=== PATIENT | male | born 1970 | race Caucasian/White ===

== ENCOUNTER 2017-04-20 12:57 | Emergency (ER) | payer SELFPAY ==
[~2017-04-20] VITALS: Ht 182.9 cm; Wt 97.3 kg
[2017-04-20 13:00] VITALS: TEMP 36.7; Ht 182.9 cm; Wt 97.3 kg
[2017-04-20] MEDS ORDERED: CYCLOBENZAPRINE HCL 5 MG TAB PO STA (13:28)
[2017-04-20] MEDS ORDERED: OXYCODONE HCL IR 5 MG TAB (IMMEDIATE RELEASE) PO STA (13:28)
[2017-04-20] MEDS ORDERED: CYCL10TA6 PO (13:30)
[2017-04-20] MEDS ORDERED: OXYC1TAB3 PO (13:30)
--- NOTE | 2017-04-20 13:32 | EMERGENCY ROOM VISIT NOTE ---
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 The pain was gradual in onset, is now constant and worse with movement. The patient notes the pain as constant and a 6/10. The patient has taken nothing relief of the pain. The patient denies any loss of control of their bowel or bladder functions. There has been no leg numbness or weakness, and no change in sensation. No nausea or vomiting or abdominal pain. No chest pain or shortness of breath. The patient has had prior back injuries. No dysuria or increased urinary frequency. The patient notes that the pain is at the inferior lumbar paraspinous musculature region. REVIEW OF SYSTEMS: A review of systems was performed with positives and pertinent negatives listed in the history of present illness. All other systems were reviewed and are negative. ALLERGIES: No known allergies MEDICATIONS: As noted below PMH: Previous herniated disc SOCIAL HISTORY: Patient lives locally. PHYSICAL EXAM: VITALS: Vitals are noted on the nurse's note and reviewed by myself. Vital signs stable. GENERAL: 46-year-old male, in no acute distress, nondiaphoretic, well-developed well-nourished. SKIN: The skin was without rashes, erythema, edema, or bruising. NECK: Supple without nuchal rigidity. No cervical spine tenderness. No paraspinous muscle tenderness. HEART: Regular rate and rhythm without murmurs gallops or rubs. LUNGS: Clear to auscultation bilaterally without wheezes, rales or rhonchi. ABDOMEN: Soft, nontender, without masses or organomegaly. Martin sign negative. MUSCULOSKELETAL: No muscle atrophy, erythema, or edema noted of the back. There is no tenderness over the lumbar spinous processes. There is tenderness over the paraspinous muscles of the left lumbar region . There is no tenderness over the thoracic spine paraspinous muscles. There are muscle spasms present in the left lumbar region. NEURO: Patient was alert and oriented to person place and time. Normal sensation to light and sharp touch. Deep tendon reflexes 2+ in the lower extremities. He is neurovascularly intact in lower extremities Strength 5/5 and equal in the bilateral lower extremities. EMERGENCY DEPARTMENT COURSE: 46-year-old male who presents to the emergency department with complaints of lower paraspinous musculature pain. This is on the left side. This is consistent with a lumbar strain. There is active spasm in this region. He was provided 10 mg of Flexeril, and 5 mg of OxyIR some relief of his pain. He has no neurologic deficits on exam. No evidence of osteomyelitis, abdominal etiologies or emergent etiologies at this time. I do not believe that imaging would be beneficial at this time. Patient is otherwise healthy. I do suspect that a course of pain medication and muscle relaxers will help expedite the healing process. He'll be discharged home with Flexeril and OxyIR. He was educated upon management today's findings. He is a follow-up with his family doctor regarding today's visit. He is to follow up regarding his high blood pressure. He was educated upon worrisome symptoms which to return, had questions prior to discharge, and was discharged home in good condition. In the evaluation and treatment of this patient following differential diagnoses were entertained: Lumbar strain, herniated disc, osteomyelitis, fracture, AAA, abdominal etiologies, among others. In the treatment of this patient controlled medication was utilized and therefore the [facility], Prescription Drug Monitoring Program website was utilized to look up this patient. No concerns were identified that would prohibit or alter my treatment decision. Problem List Medical Problems: (1) Chronic lumbar pain Status: Chronic Surgical Problems: (1) No significant past surgical history Status: Chronic Current/Historical Medications Scheduled Cyclobenzaprine Hcl (Flexeril), 10 MG PO TID Scheduled PRN Oxycodone Ir (Roxicodone Ir), 1-2 TAB PO Q4H PRN for Pain Allergies Coded Allergies: No Known Allergies (Unverified , 04/20/17) Vital Signs Date Time Temp Pulse Resp B/P (MAP) Pulse Ox O2 Delivery O2 Flow Rate FiO2 04/20/17 13:45 61 18 150/85 98 04/20/17 13:00 36.7 76 16 150/94 96 Room Air Medications Administered Medications (Trade) Dose Ordered Sig/Erin Route Start Time Stop Time Status Last Admin Dose Admin Oxycodone HCl (Roxicodone Immediate Rel Tab) 5 mg NOW STAT PO 04/20/17 13:28 04/20/17 13:29 DC 6/6/17 13:39 5 MG Cyclobenzaprine HCl (Flexeril Tab) 10 mg NOW STAT PO 04/20/17 13:28 04/20/17 13:29 DC 04/20/17 13:40 10 MG Departure Information Impression Primary Impression: Strain of lumbar region Dispostion Home / Self-Care Condition GOOD Prescriptions Cyclobenzaprine Hcl (FLEXERIL) 10 Mg Tab 10 MG PO TID, #15 TAB Prov: Brandin John PA-C 04/20/17 Oxycodone Ir (Roxicodone Ir) 5 Mg Tab 1-2 TAB PO Q4H Y for Pain, #20 TAB For Initial Treatment Prov: Brandin John PA-C 04/20/17 Referrals Jono Raza M.D. (PCP) Patient Instructions [facility] Additional Instructions You have been treated in the Emergency Department for Back Pain. You have received pain medicine in the emergency department which impairs your ability to operate a vehicle. It is illegal for you to drive after receiving these medicines. You have been prescribed Oxy IR to be used for pain control. This is a narcotic medication. You cannot drive or consume alcohol while on this medicine. This medicine should only be used for pain that cannot be controlled with over-the- counter pain medicines. You have been prescribed Flexeril (cyclobenzaprine) 1 tabs orally, three times per day. Do NOT exceed 30 mg per day. Take your first dose at bedtime as it can make you drowsy. Always take all medications as prescribed. For pain control, you can use the following [id number] medicines (if >12 yo): - Regular strength (325mg/tab) Tylenol (acetaminophen) 2 tabs every 4-6 hours as needed. Do not exceed 12 tablets in a 24 hour period. Avoid taking more than 3 grams (3000 mg) of Tylenol per day. This includes any other sources of acetaminophen you may take on a regular basis. - Regular strength (200 mg/tab) Advil (ibuprofen) 1-2 tabs every 4-6 hours as needed. Do not exceed a dose of 3200 mg per day. If this is an acute injury, ice can be applied to the area of pain for the first 3 days to help decrease pain and inflammation. After the first 3 days, a heating pad can be used over the area for continued soothing relief. You should schedule a follow-up appointment in 2-3 days with your Primary Care Provider for further evaluation and treatment of your back pain. Return to the Emergency Department if your current symptoms worsen despite treatment course outlined above, or if you develop any of the following symptoms : intractable pain despite aforementioned treatment course, loss of control of your bowel or bladder, numbness or tingling in your groin, or development of a fever. Please return to the emergency department with any new/concerning symptoms.
[2017-04-20 13:45] VITALS: BP 150/85; PULSE 61; O2SAT 98
[2017-09-20] MEDS ORDERED: TAMS0.4C38 PO (21:08)
== END 2017-04-20 13:46 | disposition home or self-care (01) ==
LOC: C.EDB 12:58 → C.EDD 13:46
DX: S39.012A Strain of muscle, fascia and tendon of lower back, initial encounter (principal); X58.XXXA Exposure to other specified factors, initial encounter; G89.29 Other chronic pain; M54.5 Low back pain

== ENCOUNTER 2017-09-07 17:32 | Emergency (ER) | payer SELFPAY ==
[~2017-09-07] VITALS: Ht 182.9 cm; Wt 96.3 kg
[~2017-09-07 17:32] MED LIST: OXYC1TAB3 PO
[2017-09-07 17:35] VITALS: Ht 182.9 cm; Wt 96.3 kg
[2017-09-07] MEDS ORDERED: IBUP-103 PO (17:55)
[2017-09-07] MEDS ORDERED: KETOROLAC TROMETHAMINE 60 MG/2 ML VIAL IM STA (18:49)
[2017-09-07] MEDS ORDERED: CYCL10TA6 PO (18:53)
[2017-09-07] MEDS ORDERED: PRED20TA PO (18:53)
--- NOTE | 2017-09-07 18:54 | EMERGENCY ROOM VISIT NOTE ---
ED Visit Note First contact with patient: 18:00 CHIEF COMPLAINT: Low back pain HISTORY OF PRESENT ILLNESS: This 46-year-old male patient presents to the emergency department ambulatory complaining of pain in the low back which began to days ago. The patient states that he has a history of bulging disks in the low back and that his back pain occasionally flares up. He reports that 2 days ago, he stepped in a hole while cutting grass, causing acute pain in the low back with radiation into the right leg. The radiation into the leg has been intermittent. He rates his discomfort a 6/10. He denies any saddle anesthesias , bowel/bladder incontinence, numbness or weakness of the lower extremities. He does state this feels similar to previous flareups of the back pain and that prednisone has worked well for him in the past. He does report he has previously been to see his primary care provider and pain management and has had both physical therapy and injections with good relief in the past. REVIEW OF SYSTEMS: A review of systems was performed with positives and pertinent negatives listed in the history of present illness. All other systems were reviewed and are negative. ALLERGIES: No known drug allergies MEDICATIONS: No chronic medications PMH: No significant past medical history. SOCIAL HISTORY: The patient lives locally with family. PHYSICAL EXAM: VITALS: Vitals are noted on the nurse's note and reviewed by myself. Vital signs stable. GENERAL: This is a 46-year-old male, in no acute distress, nondiaphoretic, well- developed well-nourished. SKIN: The skin was without rashes, erythema, edema, or bruising. Capillary refill less than 2 seconds. NECK: Supple without nuchal rigidity. No cervical spine tenderness. No paraspinous muscle tenderness. HEART: Regular rate and rhythm without murmurs gallops or rubs. LUNGS: Clear to auscultation bilaterally without wheezes, rales or rhonchi. ABDOMEN: Positive bowel sounds x 4. Normal tympanic percussion. Soft, nontender, without masses or organomegaly. Martin sign negative. MUSCULOSKELETAL: No muscle atrophy, erythema, or edema noted of the back. There is no tenderness over the lumbar spinous processes. There is tenderness over the lumbar paraspinous muscles bilaterally. There is no tenderness over the thoracic spine or paraspinous muscles. There are no muscle spasms present. The patient has full range of motion. Normal gait. Negative straight leg raise test. NEURO: Patient was alert and oriented to person place and time. Normal sensation to light and sharp touch. Deep tendon reflexes 2+ in the lower extremities. Dorsalis pedis pulse 2+ bilaterally. Strength 5/5 and equal in the bilateral lower extremities. EMERGENCY DEPARTMENT COURSE: The patient was evaluated as above. He presents with low back pain and states this is similar to previous flareups of back pain he has had. He has done well with steroids in the past. He will be placed on prednisone and Flexeril. He was given an injection of Toradol in the emergency department. Conservative measures were discussed with the patient and he was encouraged to follow-up with his primary care provider. He verbalized understanding of my assessment and treatment plan and was discharged home in good condition. Medication reconciliation: I attest that I have personally reviewed the patient 's current medication list. Blood Pressure Screening: Patient was found to have a slightly elevated blood pressure due to circumstances. I do not believe that the patient requires hypertension monitoring. DIAGNOSIS: Lumbar strain Problem List Medical Problems: (1) Chronic lumbar pain Status: Chronic Surgical Problems: (1) No significant past surgical history Status: Chronic Current/Historical Medications Scheduled Cyclobenzaprine Hcl (Flexeril), 10 MG PO TID Prednisone (Prednisone), 0 PO DAILY Scheduled PRN Ibuprofen Tab (Advil), 400-600 MG PO Q6H PRN for Pain Allergies Coded Allergies: No Known Allergies (Unverified , 04/20/17) Vital Signs Date Time Temp Pulse Resp B/P (MAP) Pulse Ox O2 Delivery O2 Flow Rate FiO2 09/07/17 19:16 36.9 65 18 162/99 95 09/07/17 19:08 65 18 162/99 95 Room Air 09/07/17 17:35 36.9 80 16 172/93 97 Room Air Medications Administered Medications (Trade) Dose Ordered Sig/Erin Route Start Time Stop Time Status Last Admin Dose Admin Ketorolac Tromethamine (Toradol Inj) 60 mg NOW STAT IM 09/07/17 18:49 09/07/17 18:50 DC 09/07/17 18:58 60 MG Departure Information Impression Primary Impression: Strain of lumbar region Dispostion Home / Self-Care Condition GOOD Prescriptions Prednisone (Prednisone) 20 Mg Tab 0 PO DAILY, #18 TAB 3 DAILY FOR 3 DAYS, THEN 2 DAILY FOR 3 DAYS, THEN 1 DAILY FOR 3 DAYS. Prov: Stella Romero .SHERI 09/07/17 Cyclobenzaprine Hcl (FLEXERIL) 10 Mg Tab 10 MG PO TID for 3 Days, #9 TAB Prov: Stella Romero .SHERI 09/07/17 Referrals Jono Raza M.D. (PCP) Patient Instructions My [facility] Additional Instructions You have been treated in the Emergency Department for Back Pain. Prednisone as prescribed. You have been prescribed Flexeril (cyclobenzaprine) 1-2 tabs orally, three times per day. Do NOT exceed 30 mg (6 tabs) per day. Take your first dose at bedtime as it can make you drowsy. Always take all medications as prescribed. For pain control, you can use the following [id number] medicines (if >12 yo): - Regular strength (325mg/tab) Tylenol (acetaminophen) 2 tabs every 4-6 hours as needed. Do not exceed 12 tablets in a 24 hour period. Avoid taking more than 4 grams (4000 mg) of Tylenol per day. This includes any other sources of acetaminophen you may take on a regular basis. - Regular strength (200 mg/tab) Advil (ibuprofen) 1-2 tabs every 4-6 hours as needed. Do not exceed a dose of 3200 mg per day. If this is an acute injury, ice can be applied to the area of pain for the first 3 days to help decrease pain and inflammation. After the first 3 days, a heating pad can be used over the area for continued soothing relief. You should schedule a follow-up appointment in 2-3 days with your Primary Care Provider for further evaluation and treatment of your back pain. Return to the Emergency Department if your current symptoms worsen despite treatment course outlined above, or if you develop any of the following symptoms : intractable pain despite aforementioned treatment course, loss of control of your bowel or bladder, numbness or tingling in your groin, or development of a fever. Problem Qualifiers Primary Impression: Strain of lumbar region Encounter type: initial encounter Qualified Codes: S39.012A - Strain of muscle, fascia and tendon of lower back, initial encounter
[2017-09-07 19:16] VITALS: BP 162/99; PULSE 65; TEMP 36.9; O2SAT 95
== END 2017-09-07 19:16 | disposition home or self-care (01) ==
LOC: C.EDB 17:33 → C.EDD 19:16
DX: S39.012A Strain of muscle, fascia and tendon of lower back, initial encounter (principal); W17.2XXA Fall into hole, initial encounter; Y92.096 Garden or yard of other non-institutional residence as the place of occurrence of the external cause; G89.29 Other chronic pain; Z79.899 Other long term (current) drug therapy